=== PATIENT | male | born 1975 | race Caucasian/White ===

== ENCOUNTER 2022-02-19 20:06 | Emergency (ER) | payer SELFPAY ==
[~2022-02-19] VITALS: Ht 175.3 cm; Wt 110.9 kg
[2022-02-19 21:20] VITALS: BP 130/74
[2022-02-19] MEDS ORDERED: TRIMO EACHEYE (22:34)
[2022-02-19] MEDS ORDERED: ERYT1OIN6 EACHEYE (22:34)
== END 2022-02-19 22:44 | disposition home or self-care (01) ==
LOC: ER 20:06
DX: H10.9 Unspecified conjunctivitis (principal)
CPT/HCPCS: 99283